=== PATIENT | female | born 1955 | race Caucasian/White ===

== ENCOUNTER 2018-08-12 21:52 | Observation (INO) | payer MEDICARE, BC ==
[2018-08-12] MEDS ORDERED: Ondansetron 4 MG/2 ML SDV IVPUSH ONE (22:27)
[2018-08-12] MEDS ORDERED: Sodium Chloride 0.9% 1,000 ML IV SCH (22:30)
--- NOTE | 2018-08-12 22:35 | EDM.PDOC ---
ED HPI GENERAL MEDICAL PROBLEM - General Chief Complaint: Gastrointestinal Problem Stated Complaint: MEDICAL Time Seen by Provider: 08/12/18 22:06 Source of Information: Reports: Family ( Eleazar) History Limitations: Reports: Altered Mental Status, Physical Impairment, Other (advanced dementia) - History of Present Illness INITIAL COMMENTS - FREE TEXT/NARRATIVE: Chief Complaint: constipation This is a 62 year old female presents to ER via Ambulance. Her give history of present illness as Mrs. Colon is in the late stages of Dementia. He reports she has 10 year history of dementia, she is end stage, dying. she has been failing the past few months. she has weekly visit with Dr. Solano. He is concerned she is constipated or has the flu because she has been vomiting today and hasn't had a poop in at least 7 days or longer. is the primary healthcare advisory services manager. He reports he can't leave her, will stay til the end. He is loyal. reports no fever, chills, but has only had one voiding today, decreased appetite. She is non-verbal. does get up and walk about the house. Onset: Gradual Duration: Getting Worse, Other (reports constipation and bowel problems for months.) Location: Reports: Abdomen Severity: Severe (last bowel movement 7 day or more) Improves with: Reports: None Worsens with: Reports: None Associated Symptoms: Reports: Nausea/Vomiting Treatments SKEIN BLEACHER: Reports: Other (see below) - Related Data Allergies Allergy/AdvReac Type Severity Reaction Status Date / Time No Known Allergies Allergy Verified 10/23/15 18:22 Home Meds: Home Meds Levothyroxine [Synthroid] 100 mcg PO DAILY 10/23/15 [History] Sertraline [Zoloft] 50 mg PO DAILY 10/23/15 [History] Past Medical History HEENT History: Reports: Impaired Vision Cardiovascular History: Reports: High Cholesterol, Hypertension 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 lives with , has two children, one and one they don't speak with, 3 grandchildren.) ED ROS GENERAL - Review of Systems Review Of Systems: ROS reveals no pertinent complaints other than HPI. Constitutional: Reports: Weakness, Decreased Appetite, Weight Loss HEENT: Reports: No Symptoms Respiratory: Reports: No Symptoms Cardiovascular: Reports: No Symptoms Endocrine: Reports: No Symptoms GI/Abdominal: Reports: Anorexia, Constipation, Vomiting (vomiting x 3 during history taking.) : Reports: Incontinence Musculoskeletal: Reports: No Symptoms Skin: Reports: No Symptoms Neurological: Reports: Pre-Existing Deficit Psychiatric: Reports: No Symptoms Hematologic/Lymphatic: Reports: No Symptoms Immunologic: Reports: No Symptoms ED EXAM, GENERAL - Physical Exam Exam: See Below Exam Limited By: Physical Impairment General Appearance: Alert, Lethargic, Thin Eye Exam: Bilateral Eye: EOMI, Normal Inspection, PERRL Ears: Normal External Exam, Normal Canal Nose: Clear Rhinorrhea Throat/Mouth: Normal Lips, Normal Teeth, Other (unable to visualize oral cavity due to clenching teeth. ) Head: Atraumatic, Normocephalic Neck: Supple, Non-Tender, Full Range of Motion Respiratory/Chest: No Respiratory Distress, Lungs Clear, Normal Breath Sounds, No Accessory Muscle Use Cardiovascular: Normal Peripheral Pulses, Regular Rate, Rhythm, No Edema, Tachycardia Peripheral Pulses: 2+: Radial (L), Radial (R), Dorsalis Pedis (L), Dorsalis Pedis (R) GI/Abdominal: Non-Tender (does not grimace or push hand away with palpation of abdomen.), No Distention, Abnormal Bowel Sounds (hypoactive) (Female) Exam: Normal External Exam Rectal (Female) Exam: Fecal Impaction, Other (formed stool in diaper and at rectum. brown colored.) Back Exam: Normal Inspection, Full Range of Motion Extremities: Limited Range of Motion (bilateral foot drop noted) Neurological: Inattentive, Confused, Disoriented, Sensory/Motor Deficit (pre- existing) Psychiatric: Flat Affect Skin Exam: Warm, Dry, Intact, Pallor Lymphatic: No Adenopathy Course - Vital Signs Last Recorded V/S: Last Vital Signs Temp 36.5 C 08/12/18 23:00 Pulse 84 08/12/18 23:00 Resp 15 08/12/18 23:00 BP 149/102 H 08/12/18 23:00 Pulse Ox 95 08/12/18 23:00 - Orders/Labs/Meds Orders: Active Orders 24 hr Category Date Time Status UA W/MICROSCOPIC [URIN] Stat Lab 08/12/18 22:27 Ordered Sodium Chloride 0.9% [Normal Saline] 1,000 ml Med 08/12/18 22:30 Active IV ASDIRECTED Medication Orders Sodium Chloride (Normal Saline) 1,000 mls @ 999 mls/hr IV ASDIRECTED FERMIN Last Admin: 08/12/18 22:54 Dose: 999 mls/hr Labs: Laboratory Tests 08/12/18 08/12/18 08/12/18 Range/Units 22:38 22:38 22:38 WBC 12.4 H (4.5-11.0) K/uL RBC 4.64 (3.30-5.50) M/uL Hgb 14.2 D (12.0-15.0) g/dL Hct 43.1 (36.0-48.0) % MCV 93 (80-98) fL MCH 31 (27-31) pg MCHC 33 (32-36) % Plt Count 267 (150-400) K/uL Neut % (Auto) 91 H (36-66) % Lymph % (Auto) 4 L (24-44) % [place] % (Auto) 5 (2-6) % Eos % (Auto) 0 L (2-4) % Baso % (Auto) 0 (0-1) % Sodium 146 (140-148) mmol/L Potassium 3.8 (3.6-5.2) mmol/L Chloride 109 H (100-108) mmol/L Carbon Dioxide 29 (21-32) mmol/L Anion Gap 11.8 (5.0-14.0) mmol/L BUN 20 H D (7-18) mg/dL Creatinine 1.1 H (0.6-1.0) mg/dL Est Cr Clr Drug Dosing 40.38 mL/min Estimated GFR (MDRD) 50 L (>60) Glucose 150 H (74-106) mg/dL Lactic Acid 1.6 (0.4-2.0) mmol/L Calcium 9.7 D (8.5-10.1) mg/dL Total Bilirubin 0.4 (0.2-1.0) mg/dL AST 23 D (15-37) U/L ALT 30 D (12-78) U/L Alkaline Phosphatase 92 (46-116) U/L Total Protein 7.8 (6.4-8.2) g/dL Albumin 4.1 (3.4-5.0) g/dL Globulin 3.7 H (2.3-3.5) g/dL Albumin/Globulin Ratio 1.1 L (1.2-2.2) Meds: Medications Generic Name Dose Route Start Last Admin Trade Name Freq PRN Reason Stop Dose Admin Sodium Chloride 1,000 mls @ 999 mls/hr 08/12/18 22:30 08/12/18 22:54 Normal Saline IV 999 mls/hr ASDIRECTED FERMIN Administration Discontinued Medications Generic Name Dose Route Start Last Admin Trade Name Freq PRN Reason Stop Dose Admin Ondansetron HCl 4 mg 08/12/18 22:27 08/12/18 22:54 Zofran IVPUSH 08/12/18 22:28 4 mg ONETIME ONE Administration - Re-Assessments/Exams Free Text/Narrative Re-Assessment/Exam: 08/12/18 22:42 discussed with to rule out acute causes for vomiting, pallor and constipation labs: CBC,CMP, UA X-ray: chest xray one view and abdomen one view meds: Zofran 4mg IV, IV fluids NS at 999ml/hr discussed with , he will need to stay until diagnose and disposition. He agrees with plan of care. 08/12/18 23:46 x-ray of chest: no acute pulmonary consolidation xray abdomen: colonic distention seen to the level of the distal descending colon. differential diagnosis includes colonic ileus or distal colonic obstruction. discussed with x-ray and lab results. will give enema and supp. to reduce constipation, then CT abdomen pelvis in am. He agrees with plan of care. admit Observation to [address] [place] [address]. Departure - Departure Time of Disposition: 23:30 Disposition: Refer to Observation Condition: Poor Clinical Impression: Constipation Dementia Qualifiers: Dementia type: unspecified type - Discharge Information *PRESCRIPTION DRUG MONITORING PROGRAM REVIEWED*: Not Applicable *COPY OF PRESCRIPTION DRUG MONITORING REPORT IN PATIENT JEANETTE: Not Applicable Instructions: Constipation, Adult Referrals: PCP,None [Primary Care Provider] - Forms: ED Department Discharge - My Orders Last 24 Hours: My Active Orders 08/12/18 22:27 UA W/MICROSCOPIC [URIN] Stat 08/12/18 22:30 Sodium Chloride 0.9% [Normal Saline] 1,000 ml IV ASDIRECTED - Assessment/Plan Last 24 Hours: My Active Orders 08/12/18 22:27 UA W/MICROSCOPIC [URIN] Stat 08/12/18 22:30 Sodium Chloride 0.9% [Normal Saline] 1,000 ml IV ASDIRECTED
--- NOTE | 2018-08-12 23:14 | CRLCR ---
INDICATION: Vomiting TECHNIQUE: Chest 1 views COMPARISON: Chest x-ray 10/23/2015 FINDINGS: Cardiovascular and mediastinum: Normal heart size. Atherosclerotic calcification. Lungs and pleural spaces: Lungs are clear. No sign of infiltrate or mass. No sign of pleural effusion. No pneumothorax. Bones and soft tissues: Mildly prominent bowel within the upper abdomen. IMPRESSION: No acute pulmonary consolidation. Dictated by Juan A Faulkner MD @ Aug 12 2018 11:13PM Signed by Dr. Juan A Faulkner @ Aug 12 2018 11:13PM
--- NOTE | 2018-08-12 23:27 | CRLCR ---
Indication: Vomiting, last bowel movement 2 weeks ago. Technique: Abdomen 1 view. Comparison: None. Findings: Colonic distension seen to the level of the distal descending colon. No significant small bowel dilatation seen. No abnormal calcifications. Small amount of stool within the colon. Impression: Colonic distention seen to the level of the distal descending colon. Differential diagnosis includes colonic ileus or distal colonic obstruction. Dictated by Juan A Faulkner MD @ Aug 12 2018 11:14PM Signed by Dr. Juan A Faulkner @ Aug 12 2018 11:26PM
--- NOTE | 2018-08-13 00:17 | PCM.HP ---
H&P History of Present Illness - General Date of Service: 08/12/18 Admit Problem/Dx: Admission Diagnosis/Problem Admission Diagnosis/Problem Constipation Source of Information: EMS Notes Reviewed, Family (, who is her Primary Supervisor Type Disk Quality Control), RN History Limitations: Reports: Altered Mental Status (end stage dementia) - History of Present Illness Initial Comments - Free Text/Narative: Chief Complaint: constipation This is a 62 year old female presents to ER via Ambulance. Her give history of present illness as Mrs. Colon is in the late stages of Dementia. He reports she has 10 year history of dementia, she is end stage, dying. she has been failing the past few months. she has weekly visit with Dr. Solano. He is concerned she is constipated or has the flu because she has been vomiting today and hasn't had a poop in at least 7 days or longer. is the primary pharmacy care coordinator. He reports he can't leave her, will stay til the end. He is loyal. reports no fever, chills, but has only had one voiding today, decreased appetite. She is non-verbal. does get up and walk about the house. 08/12/18 22:42 discussed with to rule out acute causes for vomiting, pallor and constipation labs: CBC,CMP, UA X-ray: chest xray one view and abdomen one view meds: Zofran 4mg IV, IV fluids NS at 999ml/hr x-ray of chest: no acute pulmonary consolidation xray abdomen: colonic distention seen to the level of the distal descending colon. differential diagnosis includes colonic ileus or distal colonic obstruction. discussed with x-ray and lab results. will give enema and supp. to reduce constipation, then CT abdomen pelvis in am. He agrees with plan of care. admit Observation to [address] [place] [address]. Onset of Symptoms: Reports: Gradual Duration of Symptoms: Reports: Day(s): (7 to 14 days without a bowel movement, today vomiting.), Getting Worse Location: Reports: Generalized Severity: Moderate Improves with: Reports: None Worsens with: Reports: None Context: Reports: Other (constipation, last bowel movement 7 to 10 days ago ) Associated Symptoms: Reports: Loss of Appetite, Malaise, Nausea/Vomiting, Weakness, Other (end stage dementia) - Related Data Allergies/Adverse Reactions: Allergies Allergy/AdvReac Type Severity Reaction Status Date / Time No Known Allergies Allergy Verified 10/23/15 18:22 Home Medications: Home Meds Levothyroxine [Synthroid] 100 mcg PO DAILY 10/23/15 [History] Sertraline [Zoloft] 50 mg PO DAILY 10/23/15 [History] Past Medical History HEENT History: Reports: Impaired Vision Cardiovascular History: Reports: High Cholesterol, Hypertension 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: Neurological History: Reports: Other (See Below) Other Neuro History: aggressive form of dementia that started about 4 years ago Psychiatric History: Reports: Anxiety, Dementia Endocrine/Metabolic History: Reports: Hypothyroidism - Infectious Disease History Infectious Disease History: Reports: Chicken Pox - Past Surgical History Female Surgical History: Reports: Section Social & Family History - Family History Family Medical History: Unobtainable - Tobacco Use Smoking Status *Q: Never Smoker - Recreational Drug Use Recreational Drug Use: No - Living Situation & Occupation Living situation: Reports: , with Spouse ( 38 years) Occupation: Disabled (has advanced dementia for the past 10 years. lives with , has two children, one and one they don't speak with, 3 grandchildren.) H&P Review of Systems - Review of Systems: Review Of Systems: ROS reveals no pertinent complaints other than HPI. Exam - Exam Exam: See Below - Vital Signs Vital Signs: Last Vital Signs Temp 36.5 C 08/12/18 23:00 Pulse 84 08/12/18 23:00 Resp 15 08/12/18 23:00 BP 149/102 H 08/12/18 23:00 Pulse Ox 95 08/12/18 23:00 Weight: 47.627 kg - Exam General: Other (sleeping, awakens to voice) HEENT: Rhinitis (clear discharge), Other (mouth, will not open mouth. lips are dry. teeth appear white without decay) Neck: Supple, Trachea Midline, Full Range of Motion Lungs: Clear to Auscultation, Normal Respiratory Effort Cardiovascular: Regular Rate, Regular Rhythm, Normal S1, Normal S2 GI/Abdominal Exam: Soft, Non-Tender, Abnormal Bowel Sounds (hypoactive) (Female) Exam: Normal External Exam Rectal (Female) Exam: Fecal Impaction (brown soft formed stool in diaper and at anus. ) Back Exam: Normal Inspection, Full Range of Motion Extremities: Normal Capillary Refill, Other (bilateral foot drop) Peripheral Pulses: 2+: Radial (L), Radial (R), Dorsalis Pedis (L), Dorsalis Pedis (R) Skin: Warm, Dry, Intact Neurological: Other (end stage dementia, non verbal, babbles, does not follow commands) Neuro Extensive - Mental Status: Opens Eyes to Commands (end stage dementia) Neuro Extensive - Motor, Sensory, Reflexes: Motor/Sensory Deficits Psychiatric: Other (end stage dementia. flat affect.) Physical Exam Comments:: During exam, Mrs. Colon was awake then sleeping. she did not speak, did a few seconds of babbling. did not appear to be in pain or any distress. - Patient Data Lab Results Last 24 hrs: Laboratory Results - last 24 hr 08/12/18 08/12/18 08/12/18 Range/Units 22:38 22:38 22:38 WBC 12.4 H (4.5-11.0) K/uL RBC 4.64 (3.30-5.50) M/uL Hgb 14.2 D (12.0-15.0) g/dL Hct 43.1 (36.0-48.0) % MCV 93 (80-98) fL MCH 31 (27-31) pg MCHC 33 (32-36) % Plt Count 267 (150-400) K/uL Neut % (Auto) 91 H (36-66) % Lymph % (Auto) 4 L (24-44) % [place] % (Auto) 5 (2-6) % Eos % (Auto) 0 L (2-4) % Baso % (Auto) 0 (0-1) % Sodium 146 (140-148) mmol/L Potassium 3.8 (3.6-5.2) mmol/L Chloride 109 H (100-108) mmol/L Carbon Dioxide 29 (21-32) mmol/L Anion Gap 11.8 (5.0-14.0) mmol/L BUN 20 H D (7-18) mg/dL Creatinine 1.1 H (0.6-1.0) mg/dL Est Cr Clr Drug Dosing 40.38 mL/min Estimated GFR (MDRD) 50 L (>60) Glucose 150 H (74-106) mg/dL Lactic Acid 1.6 (0.4-2.0) mmol/L Calcium 9.7 D (8.5-10.1) mg/dL Total Bilirubin 0.4 (0.2-1.0) mg/dL AST 23 D (15-37) U/L ALT 30 D (12-78) U/L Alkaline Phosphatase 92 (46-116) U/L Total Protein 7.8 (6.4-8.2) g/dL Albumin 4.1 (3.4-5.0) g/dL Globulin 3.7 H (2.3-3.5) g/dL Albumin/Globulin Ratio 1.1 L (1.2-2.2) Result Diagrams: 08/12/18 22:38 08/12/18 22:38 - Problem List (1) Constipation SNOMED Code(s): 08188024 ICD Code: K59.00 - CONSTIPATION, UNSPECIFIED Status: Acute Priority: High Current Visit: Yes (2) Dementia SNOMED Code(s): 12740944 ICD Code: F03.90 - UNSPECIFIED DEMENTIA WITHOUT BEHAVIORAL DISTURBANCE Status: Chronic Priority: High Current Visit: Yes Qualifiers: Dementia type: unspecified type (3) Hypertension SNOMED Code(s): 04830358 ICD Code: I10 - ESSENTIAL (PRIMARY) HYPERTENSION Status: Acute Priority: Low Current Visit: Yes Qualifiers: Hypertension type: unspecified Qualified Code(s): I10 - Essential (primary ) hypertension Problem List Initiated/Reviewed/Updated: Yes Orders Last 24hrs: Active Orders 24 hr Category Date Time Status Patient Status Manage Transfer [TRANSFER] Routine ADT 08/12/18 23:56 Active UA W/MICROSCOPIC [URIN] Stat Lab 08/12/18 22:27 Ordered Sodium Chloride 0.9% [Normal Saline] 1,000 ml Med 08/12/18 22:30 Active IV ASDIRECTED Resuscitation Status Routine Resus Stat 08/12/18 23:57 Ordered Medication Orders Sodium Chloride (Normal Saline) 1,000 mls @ 999 mls/hr IV ASDIRECTED FERMIN Last Admin: 08/12/18 22:54 Dose: 999 mls/hr Assessment/Plan Comment:: ASSESSMENT / PLAN This is a 62 year old female present to ER via EMS for concerns of worsen constipation. Her reports she has end-stage dementia, has been this way for 10 years. Now she is dying from it. She has forgotten to poop. Now hasn't had a bowel movement in 7 to 14 days. ER x-ray of abdomen show colonic distension vs outlet obstruction. He has weekly medical appointment with for end-stage dementia. will admit Observation for enema and supp, then CT of abdomen-pelvis in am. agrees with plan of care. Plan Constipation, this is a 62 year old female with advanced dementia, no bowel movement for 7 to 10 days. -Admit to [address] [place] [address] for further monitoring -IV Fluids for rehydration NS at 125 mL per hour -Ducolax supp and enema -CT abdomen-pelvis in am End-stage Dementia -DNR/DNI, no aggressive treatment, just keep comfortable -at risk for choking, keep head of bed elevated -monitor bed -at risk for falls Hypertension -continue home medication Maintenance issues -Orders home meds: -Nutrition: clear liquid diet -Martinez catheter not indicated at this time -DVT: SCD -PPI; IV Protonix 40mg daily CODE STATUS: DNR/DNI Admission status: Admit to [address] [place] [address] Admission justification. This patient will be admitted for inpatient services and is medically appropriate meeting medical necessity for inpatient admission as outlined in my documentation. I reasonably expect the patient will require inpatient services that span. Time over 2 midnights. I reasonably expect this patient to be discharged or transferred within 96 hours after admission to the critical access hospital. Disposition; home with Primary care provider: Dr. Solano Hospitalist: Dr. Alanis
[2018-08-13] MEDS ORDERED: Bisacodyl 10 MG Supp RECTAL ONE (00:24)
[2018-08-13] MEDS ORDERED: Ondansetron 4 MG Tab.DIS PO PRN (00:24)
[2018-08-13] MEDS ORDERED: LORazepam 2 MG/ML SDV IV PRN (00:24)
[2018-08-13] MEDS ORDERED: Lactated Ringers 1,000 ML IV SCH (00:24)
[2018-08-13] MEDS ORDERED: Morphine 2 MG/ML Syringe IVPUSH PRN (00:24)
[2018-08-13] MEDS ORDERED: oxyCODONE 5 MG Tab PO PRN (00:24)
[2018-08-13] MEDS ORDERED: Acetaminophen 325 MG Tab PO PRN (00:24)
[2018-08-13] MEDS ORDERED: Sodium Phosphate,Monobasic/Sodium Phosphate,Dibasic Enema 133 ML Bottle RECTAL ONE (00:24)
[2018-08-13] MEDS ORDERED: Albuterol 0.083% 2.5 MG/3 ML Neb Soln NEB PRN (00:24)
[2018-08-13] MEDS ORDERED: Levothyroxine 100 MCG Tab PO SCH (07:30)
[2018-08-13] MEDS ORDERED: Iopamidol 612 MG/ML 100 ML Bottle IV PRN (07:41)
[2018-08-13] MEDS ORDERED: Sodium Chloride 0.9% 10 ML Syringe FLUSH PRN (07:41)
[2018-08-13] MEDS ORDERED: Sertraline 50 MG Tab PO SCH (09:00)
--- NOTE | 2018-08-13 10:17 | PCM.PN ---
- General Info Date of Service: 08/13/18 Functional Status: Reports: Pain Controlled - Review of Systems General: Reports: Weakness Psychiatric: Reports: Confusion - Patient Data Vitals - Most Recent: Last Vital Signs Temp 36.3 C 08/13/18 07:46 Pulse 80 08/13/18 07:46 Resp 16 08/13/18 07:46 BP 149/83 H 08/13/18 07:46 Pulse Ox 96 08/13/18 07:46 Weight - Most Recent: 47.627 kg I&O - Last 24 Hours: Intake & Output 08/12/18 08/13/18 08/13/18 22:59 06:59 14:59 Output Total 225 Balance -225 Lab Results Last 24 Hours: Laboratory Results - last 24 hr 08/12/18 08/12/18 08/12/18 Range/Units 22:38 22:38 22:38 WBC 12.4 H (4.5-11.0) K/uL RBC 4.64 (3.30-5.50) M/uL Hgb 14.2 D (12.0-15.0) g/dL Hct 43.1 (36.0-48.0) % MCV 93 (80-98) fL MCH 31 (27-31) pg MCHC 33 (32-36) % Plt Count 267 (150-400) K/uL Neut % (Auto) 91 H (36-66) % Lymph % (Auto) 4 L (24-44) % [place] % (Auto) 5 (2-6) % Eos % (Auto) 0 L (2-4) % Baso % (Auto) 0 (0-1) % Sodium 146 (140-148) mmol/L Potassium 3.8 (3.6-5.2) mmol/L Chloride 109 H (100-108) mmol/L Carbon Dioxide 29 (21-32) mmol/L Anion Gap 11.8 (5.0-14.0) mmol/L BUN 20 H D (7-18) mg/dL Creatinine 1.1 H (0.6-1.0) mg/dL Est Cr Clr Drug Dosing 40.38 mL/min Estimated GFR (MDRD) 50 L (>60) Glucose 150 H (74-106) mg/dL Lactic Acid 1.6 (0.4-2.0) mmol/L Calcium 9.7 D (8.5-10.1) mg/dL Total Bilirubin 0.4 (0.2-1.0) mg/dL AST 23 D (15-37) U/L ALT 30 D (12-78) U/L Alkaline Phosphatase 92 (46-116) U/L Total Protein 7.8 (6.4-8.2) g/dL Albumin 4.1 (3.4-5.0) g/dL Globulin 3.7 H (2.3-3.5) g/dL Albumin/Globulin Ratio 1.1 L (1.2-2.2) Med Orders - Current: Current Medications Acetaminophen (Tylenol) 650 mg PO Q4H PRN PRN Reason: Pain (Mild 1-3)/fever Albuterol (Proventil Neb Soln) 2.5 mg NEB Q4H PRN PRN Reason: Shortness Of Breath/wheezing Lactated Ringer's (Ringers, Lactated) 1,000 mls @ 125 mls/hr IV ASDIRECTED [facility] Last Admin: 08/13/18 00:50 Dose: 125 mls/hr Levothyroxine Sodium (Synthroid) 100 mcg PO ACBREAKFAST [facility] Last Admin: 08/13/18 08:55 Dose: 100 mcg Lorazepam (Ativan) 1 mg IV Q6H PRN PRN Reason: Nausea/Vomiting Morphine Sulfate (Morphine) 2 mg IVPUSH Q2H PRN PRN Reason: Pain (severe 7-10) Ondansetron HCl (Zofran Odt) 4 mg PO Q6H PRN PRN Reason: Nausea able to take PO Oxycodone HCl (Oxycodone) 5 mg PO Q4H PRN PRN Reason: Pain (moderate 4-6) Senna/Docusate Sodium (Senna Plus) 1 tab PO BID [facility] Last Admin: 08/13/18 08:55 Dose: 1 tab Sertraline HCl (Zoloft) 50 mg PO DAILY [facility] Last Admin: 08/13/18 08:55 Dose: 50 mg Discontinued Medications Bisacodyl (Dulcolax) 10 mg RECTAL ONETIME ONE Stop: 08/13/18 00:25 Last Admin: 08/13/18 01:58 Dose: 10 mg Sodium Chloride (Normal Saline) 1,000 mls @ 999 mls/hr IV ASDIRECTED [facility] Stop: 08/13/18 00:24 Last Admin: 08/12/18 22:54 Dose: 999 mls/hr Sodium Chloride (Normal Saline) 70 mls @ 3 mls/sec IV ASDIRECTED [facility] Stop: 08/13/18 09:00 Iopamidol (Isovue-300 (61%)) 72 ml IV . DIRECTED PRN PRN Reason: RADIOLOGY EXAM Stop: 08/13/18 09:00 Ondansetron HCl (Zofran) 4 mg IVPUSH ONETIME ONE Stop: 08/12/18 22:28 Last Admin: 08/12/18 22:54 Dose: 4 mg Sodium Biphosphate/Sodium Phosphate (Fleet Enema) 133 ml RECTAL ONETIME ONE Stop: 08/13/18 00:25 Last Admin: 08/13/18 00:50 Dose: 133 ml Sodium Chloride (Saline Flush) 10 ml FLUSH ONETIME PRN PRN Reason: per radiology protocol Stop: 08/13/18 09:00 - Exam Quality Assessment: No: Supplemental Oxygen General: Alert, No Acute Distress, Lethargic. No: Oriented, Cooperative Lungs: Clear to Auscultation, Normal Respiratory Effort Cardiovascular: Regular Rate, Regular Rhythm GI/Abdominal Exam: Normal Bowel Sounds, Soft, Non-Tender, No Distention Extremities: No Pedal Edema. No: Increased Warmth Skin: Warm, Dry Psy/Mental Status: Alert. No: Agitated - My Orders Last 24 Hours: My Active Orders 08/13/18 09:10 Abdomen 2V AP Flat Upright [CR] Routine 08/13/18 21:00 Melatonin 9 mg PO BEDTIME - Plan Plan:: ASSESSMENT / PLAN This is a 62 year old female present to ER via EMS for concerns of worsen constipation. Her reports she has end-stage dementia, has been this way for 10 years. Now she is dying from it. She has forgotten to poop. Now hasn't had a bowel movement in 7 to 14 days. ER x-ray of abdomen show colonic distension vs outlet obstruction. He has weekly medical appointment with for end-stage dementia. will admit Observation for enema and supp, then CT of abdomen-pelvis in am. agrees with plan of care. Plan Constipation, this is a 62 year old female with advanced dementia, no bowel movement for 7 to 10 days. -Admit to [address] [place] [address] for further monitoring -IV Fluids for rehydration NS at 125 mL per hour -Ducolax supp and enema -CT abdomen-pelvis in am End-stage Dementia -DNR/DNI, no aggressive treatment, just keep comfortable -at risk for choking, keep head of bed elevated -monitor bed -at risk for falls Hypertension -continue home medication Maintenance issues -Orders home meds: -Nutrition: clear liquid diet -Martinez catheter not indicated at this time -DVT: SCD -PPI; IV Protonix 40mg daily CODE STATUS: DNR/DNI Admission status: Admit to [address] [place] [address] Admission justification. This patient will be admitted for inpatient services and is medically appropriate meeting medical necessity for inpatient admission as outlined in my documentation. I reasonably expect the patient will require inpatient services that span. Time over 2 midnights. I reasonably expect this patient to be discharged or transferred within 96 hours after admission to the critical access hospital. Disposition; home with Primary care provider: Dr. Solano Hospitalist: Dr. Alanis
--- NOTE | 2018-08-13 10:23 | CRLCR ---
Indication: Abdominal pain; constipation Technique: Two view study abdomen including upright Comparison: KUB August 12, 2018 Findings: Nonspecific intestinal gas pattern. Colon is less distended on the current examination when compared to the previous study. No pneumoperitoneum. No abnormal intra-abdominal calcifications Impression: Less distention of the colon on current examination No pneumoperitoneum Dictated by Rajinder Ribeiro MD @ Aug 13 2018 10:20AM Signed by Dr. Rajinder Ribeiro @ Aug 13 2018 10:22AM
[2018-08-13 10:33] VITALS: BP 143/106
--- NOTE | 2018-08-13 11:02 | PCM.DCSUM1 ---
Discharge Summary - Hospital Course Brief History: 62-year-old female with history of severe early onset Alzheimer' s dementia who presented with nausea and vomiting after not having a bowel movement for several days. She was admitted for management of constipation with some concern for possible colonic obstruction. Diagnosis: Stroke: No - Discharge Data Discharge Date: 08/13/18 Discharge Disposition: DC/Tfer to Hospice - Home 50 Condition: Stable - Discharge Diagnosis/Problem(s) (1) Constipation SNOMED Code(s): 98789769 ICD Code: K59.00 - CONSTIPATION, UNSPECIFIED Status: Acute Priority: High (2) Dementia SNOMED Code(s): 79244301 ICD Code: F03.90 - UNSPECIFIED DEMENTIA WITHOUT BEHAVIORAL DISTURBANCE Status: Chronic Priority: High Qualifiers: Dementia type: Alzheimer's disease Alzheimer's disease onset: early-onset Dementia behavioral disturbance: without behavioral disturbance Qualified Code(s): G30.0 - Alzheimer's disease with early onset; F02.80 - Dementia in other diseases classified elsewhere without behavioral disturbance (3) Encounter for palliative care SNOMED Code(s): 819512439 ICD Code: Z51.5 - ENCOUNTER FOR PALLIATIVE CARE Status: Acute - Patient Summary/Data Hospital Course: Elena presented to the emergency room with her with concerns of nausea, vomiting and abdominal distention. She has severe dementia and did not participate in the conversation. History is gathered from her . He reported no bowel movement for about one week prior to her developing symptoms of nausea with vomiting. Workup in the emergency room was suggestive of constipation and possible colonic obstruction. She received an enema as well as a Dulcolax tablet and had several large bowel movements overnight following admission. By the morning after admission she seems to be comfortable but sleepy. She does not have abdominal distention. She is no longer vomiting and does not have nausea. Initially a CT scan was considered but we elected to perform an x-ray which showed improvement in the colonic distention. There was no evidence for obstruction. There are still some right-sided stool but not a large amount of stool noted in the colon. Initially we discussed with the Eleazar as well as one of Elena's caregivers Evon potential paths for care after the hospital stay. They were interested in meeting with hospice to discuss the potential treatment options. Eleazar had made it clear at the time of presentation that he did not want aggressive interventions and felt like his was at the end of her dementia process. His main concern was comfort for his who has been struggling with dementia for nearly 10 years. After meeting with hospice he felt that there services would be very beneficial. The plan is for Elena to go home this afternoon and hospice will perform the admission tomorrow. I did encourage them to start a regular bowel regimen and start with taking the Miralax once daily on a regular basis. We did discuss titrating this up or down based on the regularity of her bowel movements. - Patient Instructions Diet: Regular Diet as Tolerated Activity: As Tolerated Showering/Bathing: May Shower Notify Provider of: Increased Pain, Nausea and/or Vomiting Other/Special Instructions: 1. Take Miralax daily to help avoid hard stools and constipation. 2. I have placed a referral to Hospice to provide additional cares and to help keep Elena at home and comfortable. They are planning to complete the admission at 10 am tomorrow. - Discharge Plan *PRESCRIPTION DRUG MONITORING PROGRAM REVIEWED*: Not Applicable *COPY OF PRESCRIPTION DRUG MONITORING REPORT IN PATIENT JEANETTE: Not Applicable Home Medications: Home Meds Levothyroxine [Synthroid] 100 mcg PO DAILY 10/23/15 [History] Sertraline [Zoloft] 50 mg PO DAILY 10/23/15 [History] Oxygen Therapy Mode: Room Air Patient Handouts: Constipation, Adult - Discharge Summary/Plan Comment DC Time >30 min.: Yes (50 - hospice consultation and coordination ) - Patient Data Vitals - Most Recent: Last Vital Signs Temp 36.3 C 08/13/18 10:32 Pulse 71 08/13/18 10:32 Resp 16 08/13/18 10:32 BP 143/106 H 08/13/18 10:32 Pulse Ox 98 08/13/18 10:32 Weight - Most Recent: 47.627 kg I&O - Last 24 hours: Intake & Output 08/12/18 08/13/18 08/13/18 22:59 06:59 14:59 Output Total 225 Balance -225 Lab Results - Last 24 hrs: Laboratory Results - last 24 hr 08/12/18 08/12/18 08/12/18 Range/Units 22:38 22:38 22:38 WBC 12.4 H (4.5-11.0) K/uL RBC 4.64 (3.30-5.50) M/uL Hgb 14.2 D (12.0-15.0) g/dL Hct 43.1 (36.0-48.0) % MCV 93 (80-98) fL MCH 31 (27-31) pg MCHC 33 (32-36) % Plt Count 267 (150-400) K/uL Neut % (Auto) 91 H (36-66) % Lymph % (Auto) 4 L (24-44) % [place] % (Auto) 5 (2-6) % Eos % (Auto) 0 L (2-4) % Baso % (Auto) 0 (0-1) % Sodium 146 (140-148) mmol/L Potassium 3.8 (3.6-5.2) mmol/L Chloride 109 H (100-108) mmol/L Carbon Dioxide 29 (21-32) mmol/L Anion Gap 11.8 (5.0-14.0) mmol/L BUN 20 H D (7-18) mg/dL Creatinine 1.1 H (0.6-1.0) mg/dL Est Cr Clr Drug Dosing 40.38 mL/min Estimated GFR (MDRD) 50 L (>60) Glucose 150 H (74-106) mg/dL Lactic Acid 1.6 (0.4-2.0) mmol/L Calcium 9.7 D (8.5-10.1) mg/dL Total Bilirubin 0.4 (0.2-1.0) mg/dL AST 23 D (15-37) U/L ALT 30 D (12-78) U/L Alkaline Phosphatase 92 (46-116) U/L Total Protein 7.8 (6.4-8.2) g/dL Albumin 4.1 (3.4-5.0) g/dL Globulin 3.7 H (2.3-3.5) g/dL Albumin/Globulin Ratio 1.1 L (1.2-2.2) Med Orders - Current: Current Medications Acetaminophen (Tylenol) 650 mg PO Q4H PRN PRN Reason: Pain (Mild 1-3)/fever Albuterol (Proventil Neb Soln) 2.5 mg NEB Q4H PRN PRN Reason: Shortness Of Breath/wheezing Lactated Ringer's (Ringers, Lactated) 1,000 mls @ 125 mls/hr IV ASDIRECTED [facility] Last Admin: 08/13/18 00:50 Dose: 125 mls/hr Levothyroxine Sodium (Synthroid) 100 mcg PO ACBREAKFAST [facility] Last Admin: 08/13/18 08:55 Dose: 100 mcg Lorazepam (Ativan) 1 mg IV Q6H PRN PRN Reason: Nausea/Vomiting Melatonin (Melatonin) 9 mg PO BEDTIME [facility] Morphine Sulfate (Morphine) 2 mg IVPUSH Q2H PRN PRN Reason: Pain (severe 7-10) Ondansetron HCl (Zofran Odt) 4 mg PO Q6H PRN PRN Reason: Nausea able to take PO Oxycodone HCl (Oxycodone) 5 mg PO Q4H PRN PRN Reason: Pain (moderate 4-6) Senna/Docusate Sodium (Senna Plus) 1 tab PO BID [facility] Last Admin: 08/13/18 08:55 Dose: 1 tab Sertraline HCl (Zoloft) 50 mg PO DAILY [facility] Last Admin: 08/13/18 08:55 Dose: 50 mg Discontinued Medications Bisacodyl (Dulcolax) 10 mg RECTAL ONETIME ONE Stop: 08/13/18 00:25 Last Admin: 08/13/18 01:58 Dose: 10 mg Sodium Chloride (Normal Saline) 1,000 mls @ 999 mls/hr IV ASDIRECTED [facility] Stop: 08/13/18 00:24 Last Admin: 08/12/18 22:54 Dose: 999 mls/hr Sodium Chloride (Normal Saline) 70 mls @ 3 mls/sec IV [facility] Stop: 08/13/18 09:00 Iopamidol (Isovue-300 (61%)) 72 ml IV . DIRECTED PRN PRN Reason: RADIOLOGY EXAM Stop: 08/13/18 09:00 Ondansetron HCl (Zofran) 4 mg IVPUSH ONETIME ONE Stop: 08/12/18 22:28 Last Admin: 08/12/18 22:54 Dose: 4 mg Sodium Biphosphate/Sodium Phosphate (Fleet Enema) 133 ml RECTAL ONETIME ONE Stop: 08/13/18 00:25 Last Admin: 08/13/18 00:50 Dose: 133 ml Sodium Chloride (Saline Flush) 10 ml FLUSH ONETIME PRN PRN Reason: per radiology protocol Stop: 08/13/18 09:00
[2018-08-13] MEDS ORDERED: Melatonin 3 MG Tab PO SCH (21:00)
== END 2018-08-13 12:12 | disposition hospice, home (50) ==
LOC: JP.ED 21:52 → JP.MS 23:56
PROVIDERS: ADMIT Internal Medicine; ATTEND Internal Medicine
DX: K59.00 Constipation, unspecified (principal); G30.0 Alzheimer's disease with early onset; F02.80 Dementia in other diseases classified elsewhere, unspecified severity, without behavioral disturbance, psychotic disturbance, mood disturbance, and anxiety; Z51.5 Encounter for palliative care; I10 Essential (primary) hypertension; E03.9 Hypothyroidism, unspecified; E78.00 Pure hypercholesterolemia, unspecified; Z79.890 Hormone replacement therapy; Z79.899 Other long term (current) drug therapy; Z66 Do not resuscitate
CPT/HCPCS: 36415; 71045; 74018; 74019; 80053; 83605; 85025; 96361; 96374; 99284; 99284-25; A9270-GY; J2405; J7030; J7120